=== PATIENT | female | born 1985 | race Caucasian/White ===

== ENCOUNTER 2021-05-20 23:10 | Emergency (ER) | payer OTHER ==
[~2021-05-20] VITALS: Ht 160 cm; Wt 52.2 kg
[2021-05-21 00:45] LABS: URINE BILIRUBIN NEGATIVE (Negative); URINE BLOOD NEGATIVE (Negative); URINE CLARITY CLEAR; URINE COLOR YELLOW; URINE GLUCOSE-RANDOM NEGATIVE (Negative); URINE KETONES NEGATIVE (Negative); URINE LEUKOCYTES-REFLEX NEGATIVE (Negative); URINE NITRITE-REFLEX NEGATIVE (Negative); URINE PROTEIN NEGATIVE (Negative); URINE SPECIFIC GRAVITY 1.025 (1.005-1.030); URINE UROBILINOGEN 0.2 E.U./dl (0.2-1.0)
[2021-05-21 00:53] LABS: AMP/METHAMP Negative (Negative); BARBITURATES Negative (Negative); BENZODIAZEPINES Negative (Negative); COCAINE Negative (Negative); METHADONE Negative (Negative); OPIATES Negative (Negative); PCP Negative (Negative); THC POSITIVE (Negative)
[2021-05-21 01:49] LABS: HEMATOCRIT 38.9 % (37.0-47.0); HEMOGLOBIN 13.1 gm/dL (12.0-15.0); MCH 30.8 pg (26.0-34.0); MCHC 33.7 g/dL (28.0-37.0); MCV 91.5 fL (80.0-100.0); MPV 8.7 fl. (7.2-11.1); NUCLEATED RBCS 0 /100WBC; PLATELET COUNT* 274 thou/uL (150-400); RBC 4.25 mil/uL (4.20-5.00); RDW-CV 13.1 % (10.5-14.5); WBC 14.8 thou/uL (4.0-11.0)
[2021-05-21 01:59] LABS: CALCIUM 8.4 mg/dL (8.5-10.1); CREATININE 1.2 mg/dL (0.6-1.3); POTASSIUM 3.8 mmol/L (3.5-5.1)
[2021-05-21 02:03] LABS: ALBUMIN 3.8 g/dL (3.4-5.0); TOTAL BILIRUBIN 0.3 mg/dL (<0.1-1.0); TOTAL PROTEIN 7.4 g/dL (6.4-8.2)
[2021-05-21] MEDS ORDERED: MS CONTIN 30 MG30 M1 PO (02:26)
[2021-05-21] MEDS ORDERED: ZOFRAN ODT4 MG PO (02:50)
[2021-05-21 03:11] VITALS: BP 133/94
[2021-05-21 04:57] LABS: ABSOLUTE LYMPHOCYTES 1.5 thou/uL (0.8-5.3); ABSOLUTE MONOCYTES 0.3 thou/uL (0.0-1.2)
[2021-05-21 04:58] LABS: PLATELET ESTIMATE ADEQUATE
== END 2021-05-21 03:11 | disposition home or self-care (01) ==
LOC: M.ERS 23:10
PROVIDERS: Emergency Medicine
DX: F11.23 Opioid dependence with withdrawal (principal)